=== PATIENT | female | born 1995 | race Caucasian/White ===

== ENCOUNTER 2017-12-16 06:32 | Emergency (ER) | payer OTHER ==
[~2017-12-16] VITALS: Ht 154.9 cm; Wt 44.5 kg
[2017-12-16] MEDS ORDERED: BIRTH CONTROL PILLS PO (06:39)
[2017-12-16 06:56] VITALS: BP 129/70
[2017-12-16] MEDS ORDERED: AMOX TR/POT CLAV 500 MG/125 MG TABLET PO ONE (07:15)
== END 2017-12-16 07:30 | disposition home or self-care (01) ==
LOC: EMS 06:33
DX: N61.1 Abscess of the breast and nipple (principal)
CPT/HCPCS: 99283

== ENCOUNTER 2019-03-21 14:53 | Emergency (ER) | payer OTHER ==
[~2019-03-21] VITALS: Ht 154.9 cm; Wt 43.2 kg
[~2019-03-21 14:53] MED LIST: BIRTH CONTROL PILLS PO
[2019-03-21 17:17] LABS: BASOPHILS % (AUTO) 0.3 % (0.0-2.0); EOSINOPHILS % (AUTO) 0.1 % (1.0-6.0); HEMATOCRIT 43.8 % (36-46); HEMOGLOBIN 14.3 g/dL (12.0-16.0); LYMPHOCYTES # (AUTO) 1.2 K/uL (1.0-4.8); LYMPHOCYTES % (AUTO) 8.8 % (22.0-44.0); MEAN CORPUSCULAR HEMOGLOBIN 28.1 pg (26.0-34.0); MEAN CORPUSCULAR HGB CONC 32.6 G/dL (31.0-37.0); MEAN CORPUSCULAR VOLUME 86 fL (80-100); MONOCYTES # (AUTO) 0.6 K/uL (0.1-1.0); MONOCYTES % (AUTO) 4.6 % (2.0-9.0); PLATELET COUNT (AUTO) 176 K/uL (150-450); RED BLOOD CELL COUNT(AUTO) 5.09 MIL/uL (4.00-5.20)
[2019-03-21] MEDS ORDERED: SODIUM CHLORIDE 0.9% 100 ML ONE (17:26)
[2019-03-21] MEDS ORDERED: IOVERSOL 320 MG/ML 100 ML VIAL ONE (17:26)
[2019-03-21 17:45] LABS: NEUTROPHILS % (AUTO) 86.2 % (40.0-70.0)
[2019-03-21 17:50] LABS: ANION GAP 11 mmol/L (8-16); CALCIUM, TOTAL 9.8 mg/dL (8.8-10.5); CARBON DIOXIDE 25 mmol/L (22-29); CHLORIDE 102 mmol/L (98-107); CREATININE 0.77 mg/dL (0.60-1.30); GLOMERULAR FILTR. RATE CALC > 60 mL/min (>60); GLUCOSE,RANDOM 104 mg/dL (70-110); POTASSIUM 3.7 mmol/L (3.5-5.1); SODIUM SERUM 138 mmol/L (136-145); UREA NITROGEN, BLOOD 17 mg/dL (7-18)
[2019-03-21 17:53] LABS: PROTHROMBIN TIME 10.3 SEC (9.4-11.6)
[2019-03-21 18:01] LABS: ALANINE AMINOTRANSFERASE 12 U/L (12-78); ALBUMIN 4.7 g/dL (3.4-5.0); ALKALINE PHOSPHATASE 60 U/L (46-116); ASPARTATE AMINOTRANSFERASE 21 U/L (15-37); BILIRUBIN,TOTAL 0.6 mg/dL (0.1-1.0); HCG,QUANTITATIVE < 1 mIU/mL (0-6); TOTAL PROTEIN, SERUM 7.9 g/dL (6.4-8.2)
[2019-03-21 20:09] VITALS: BP 107/69
== END 2019-03-21 20:52 | disposition short-term general hospital (02) ==
LOC: EMS 14:54
DX: S32.10XA Unspecified fracture of sacrum, initial encounter for closed fracture (principal); S32.592A Other specified fracture of left pubis, initial encounter for closed fracture; V29.49XA Motorcycle driver injured in collision with other motor vehicles in traffic accident, initial encounter; Y93.89 Activity, other specified; Y92.89 Other specified places as the place of occurrence of the external cause; Y99.8 Other external cause status
CPT/HCPCS: 36415; 72125; 73503; 74177; 80053; 84702; 85025; 85610; 85730; 99285; J7050; Q9967